=== PATIENT | female | born 1970 | race Caucasian/White ===

== ENCOUNTER 2019-01-16 11:17 | Day surgery (SDC) | payer BC ==
[~2019-01-16 11:17] MED LIST: ISOVUE-370 76%-LOCM 1 ML ONE; Iopamidol 370 76% 50 ML VIAL FS ONE
[2019-01-16 12:09] LABS: #Lymphocytes 0.9 thou/uL (1.20-3.40); #Neutrophils 14.7 thou/uL (1.40-6.50); %Eosinophils 0.1 % (0.0-10.0); %Lymphocytes 5.2 % (21.0-51.0); %Monocytes 5.8 % (0.0-10.0); %Neutrophils 88.9 % (42.0-75.0); Hemoglobin 15.8 g/dL (12.0-16.0); Mean Corpuscular Hemoglobin 30.6 pg (27.0-31.0); Mean Corpuscular Volume 89.9 fL (78.0-98.0); Mean Platelet Volume 8.7 fL (7.4-10.4); Platelet Count 197 thou/uL (130-400); RBC Distribution Width 12.1 % (11.5-14.5); Red Blood Cell (RBC) Count 5.16 mill/uL (4.20-5.40); White Blood Cell (WBC) Count 16.6 thou/uL (4.8-10.8)
[2019-01-16 12:19] LABS: Bilirubin Negative (Negative); Blood, Urine Trace (Negative); Clarity Clear (Clear); Glucose, Urine (Dipstick) Negative (Negative); Leukocyte Negative (Negative); Nitrite Negative (Negative); Protein, Urine (Dipstick) Negative (Neg-Trace); Urobilinogen 0.2 mg/dL (0.2-1.0)
[2019-01-16 12:28] LABS: ALT (SGPT) 34 U/L (8-55); AST (SGOT) 19 U/L (5-34); Albumin 4.9 g/dL (3.5-5.0); Alkaline Phosphatase 82 U/L (40-150); Anion Gap 16 mmol/L (10-20); BUN (Urea Nitrogen) 12 mg/dL (7.0-18.7); Bilirubin, Total 1.2 mg/dL (0.2-1.2); Calc. Creatinine Clearance 0 mL/min (70-130); Calcium 10.1 mg/dL (7.8-10.44); Carbon Dioxide 23 mmol/L (22-29); Chloride 104 mmol/L (98-107); Estimated GFR-MDRD 74; Globulin 2.9 g/dL (2.4-3.5); Glucose 106 mg/dL (70-105); Protein, Total 7.8 g/dL (6.0-8.3); Sodium 139 mmol/L (136-145)
[2019-01-16 12:33] LABS: Bacteria/HPF None Seen HPF (None Seen); Hyaline Casts/LPF NONE SEEN LPF (0-3 Hyaline); RBC/HPF None Seen HPF (0-3); Squamous Epithelial 0-3 HPF (0-3); WBC/HPF None Seen HPF (0-3)
[2019-01-16] MEDS ORDERED: Morphine 4 MG/ML VIAL ONE (13:28)
[2019-01-16] MEDS ORDERED: Ondansetron PF 4 MG/2 ML Vial ONE (13:29)
--- NOTE | 2019-01-16 15:04 | CT ---
CT ABDOMEN AND PELVIS WITH ORAL AND IV CONTRAST: 01/16/19 HISTORY: Right lower quadrant pain. FINDINGS: There are bilateral breast implants. The lung bases are unremarkable. There is fatty infiltration of the liver. No calcified gallstones are seen. The spleen, pancreas, adrenal glands, and left kidney ar e normal. A tiny cyst is seen in the right kidney. No free air, free fluid or lymphadenopathy is seen in the abdomen or pelvis. The uterus and ovaries a re present. The small bowel loops are not abnormally dilated. There is intraluminal contrast and flu id in the appendix with wall thickening and small amount of intraluminal fluid as well. IMPRESSION: Possibility of early/developing appendicitis should be considered. POS: TPC
[2019-01-16] MEDS ORDERED: Piperacillin/Tazobactam 3.375 GM VIAL ONE ×2 (15:23→21:55)
--- NOTE | 2019-01-16 16:36 | HP ---
HISTORY OF PRESENT ILLNESS: Ms. Armenta is a 48-year-old woman with a 36-hour history of insidious onset started as a periumbilical abdominal pain, which is now in right lower quadrant. Pain is described as crampy and occasionally sharp without any radiation. The pain is rated at 8 to 9/10, associated with multiple episodes of nausea and nonbilious emesis. The patient reports abdominal bloating over the last several days. She denies any diarrhea or constipation. She denies any fevers or chills. PAST MEDICAL HISTORY: She is G3, P2. She denies any significant past medical problems. PAST SURGICAL HISTORY: Denies any previous surgeries. FAMILY HISTORY: Notable for diabetes mellitus and essential hypertension. Great grandmother from mom's side has a history of spinal carcinoma. PREHOSPITALIZATION MEDICATIONS: None. ALLERGIES: THE PATIENT DENIES ANY KNOWN DRUG ALLERGIES. REVIEW OF SYSTEMS: A 10-point review of systems is essentially unremarkable except as stated in past medical history and chief complaint. PHYSICAL EXAMINATION: GENERAL: This reveals a 48-year-old normally developed woman, who is otherwise coherent and interactive and appears stated age. The patient is alert and oriented x3, appears to be in moderate acute distress secondary to right lower quadrant abdominal pain. VITAL SIGNS: Include blood pressure 121/71, pulse 107, respiratory rate is 16, temperature is 97.3 degrees Fahrenheit, and oxygen saturation 98% on room air. HEENT: Reveals normocephalic and atraumatic. Pupils are equal, round, reactive to light and accommodation. Extraocular muscles are intact bilaterally. She has no sclerae icterus present. HEART: Reveals regular rate and rhythm. No murmurs or gallops auscultated. LUNGS: Clear to auscultation bilaterally. Breathing, regular and nonlabored. ABDOMEN: Soft, moderately distended. She has right lower quadrant tenderness to palpation. She has a positive Rovsing sign. Liver and spleen otherwise nonpalpable below costal margin. EXTREMITIES: Reveal 2+ radial and pedal pulses bilaterally. No ankle edema is present. NEUROLOGIC: Reveals no focal deficits present. LABORATORY FINDINGS: Today include a CBC with 16,600 white blood cells, hemoglobin and hematocrit 15.8 and 46.4 respectively, platelet count is 197,000. Metabolic profile; sodium 139, potassium 4.0, chloride is 104, bicarb is 23, BUN is 12, creatinine 0.83, glucose 106, total bilirubin 1.2, AST and ALT 19 and 34 respectively. Serum lipase is normal at 21. I have personally reviewed the CT scan of the abdomen and pelvis, which is remarkable for dilated appendix with periappendiceal fat stranding. There is minimum peritoneal fluid present. No pneumoperitoneum is present. IMPRESSION: Acute appendicitis. PLAN: Laparoscopic appendectomy. Above findings and plan have been discussed with the patient and her elderly mother and adult son at bedside. I have also advised the patient of the risks and benefits of the proposed surgery to include, but not limited to bleeding, infection, injury to bowel or surrounding structures. This information given to the patient in the presence of elderly mother and adult son at bedside. They indicated understanding of the information provided today. I have answered their questions. The patient is going to consent for this admission and surgical intervention. Job ID: [id number]
[2019-01-16] MEDS ORDERED: Acetaminophen 1,000 MG in Premix Bag 1 BAG IVPB ONE (19:00)
[2019-01-16] MEDS ORDERED: Fentanyl 100 MCG/2 ML VIAL ONE ×2 (20:23→21:02)
--- NOTE | 2019-01-16 20:44 | ULT ---
Sonogram right upper quadrant HISTORY: Right upper quadrant pain. FINDINGS: The gallbladder has a normal appearance. No stones visible. Common duct is 0.4 cm. Liver un remarkable without focal mass or intrahepatic biliary dilatation. No free fluid. IMPRESSION: No sonographic evidence of gallstones or biliary obstruction.
[2019-01-16] MEDS ORDERED: Midazolam HCl 2 mg/2 ml Vial ONE (21:02)
[2019-01-16] MEDS ORDERED: Lidocaine 2% Jelly 5 ML TUBE ONE (21:02)
[2019-01-16] MEDS ORDERED: Bupivacaine/Epinephrine 0.25% 30 ML VIAL ONE (21:03)
[2019-01-16] MEDS ORDERED: Scopolamine 1.5 mg/72 hour Patch ONE (21:32)
[2019-01-16] MEDS ORDERED: Famotidine/PF 20 mg/2ml Vial ONE (21:32)
--- NOTE | 2019-01-16 22:54 | PDOC.OP ---
Operative Note - Operative Note Operative Note: PROCEDURE: Laparoscopic appendectomy. SURGEON: Aliyah Manley M.D. DATE OF PROCEDURE: 01/16/2019. PREOPERATIVE DIAGNOSIS: Appendicitis. POSTOPERATIVE DIAGNOSIS: Appendicitis. HISTORY:48-year-old woman who presented with signs and symptoms concerning for appendicitis. CT scan showed evidence of acute appendicitis without evidence of perforation. recommendation was made to proceed with laparoscopic appendectomy. DESCRIPTION OF PROCEDURE: After informed consent was obtained and appropriate antibiotics continued, the patient was taken to the operating room and placed in the supine position and general endotracheal anesthesia was administered. The bladder was decompressed with a Boswell catheter and the abdomen was prepped and draped in the standard sterile fashion. Local anesthesia was infused to the skin and subcutaneous tissues superior to the umbilicus. A transverse skin incision was made and a Veress needle placed into the abdominal cavity and carbon dioxide gas insufflated without difficulty. Opening pressure was less than 5. Carbon dioxide gas was insufflated to an intra-abdominal pressure 15 and the patient tolerated this well. The Veress needle was withdrawn and a Helix port advanced under direct laparoscopic vision into the abdominal cavity. Two additional ports were placed in the suprapubic and left lateral abdomen under direct laparoscopic vision after local anesthesia was infused at these sites. There were acute-appearing adhesionsbetween the terminal ileum, appendix, and abdominal sidewall which were easily taken down bluntly. The appendix was identified and appeared inflamed but not perforated. The appendix was grasped by the mesoappendix and elevated. The mesoappendix was then sequentially ligated and divided down to the base of the appendix, which was normal in appearance and was clearly seen to be at the confluence of the tenia. Two Endoloops were placed around the base of the appendix and the appendix was divided between these Endoloops, placed into an EndoCatch bag and drawn out through the suprapubic incision. The suprapubic trocar was then replaced and the operative site was easily irrigated to clear. The suprapubic trocar was removed and the fascia closed under direct laparoscopic vision with a 0 Vicryl suture on a GraNee needle with excellent technical result. The left lateral trocar was then removed and hemostasis verified. Carbon dioxide gas was desufflated through the umbilical trocar which was then removed. The skin incisions were irrigated and additional local anesthesia infused at each site. The skin was closed with 4-0 subcuticular Monocryl sutures and Dermabond dressings were placed. The patient was extubated and taken to the recovery room in good condition. Estimated blood loss was minimal. There were no complications. SPECIMEN: Appendix.
[2019-01-16] MEDS ORDERED: HYDROcodone/Acetaminophen 5/325 mg Tablet ONE (23:40)
== END 2019-01-17 00:15 | disposition home or self-care (01) ==
LOC: ERS 11:17
PROVIDERS: ATTEND Surgery
PROC: 0DTJ4ZZ Resection of Appendix, Percutaneous Endoscopic Approach (ICD-10-PCS; principal; 2019-01-16)
DX: K35.80 Unspecified acute appendicitis (principal)
CPT/HCPCS: 36415; 74177; 76705; 80053; 81003; 81015; 83690; 85025; 88304; 96361; 96365; 96375; J0131; J2250; J2270; J2405; J2543; J3010; S0028